=== PATIENT | male | born 1940 | race Caucasian/White ===

== ENCOUNTER 2016-12-25 07:07 | Outpatient (CLI) | payer OTHER ==
[2013-08-27 16:12] VITALS: BP 107/69
[2016-12-25 08:00] LABS: eGFR (African) 58; eGFR (Non-African) 48
== END 2016-12-25 07:10 ==
LOC: LAB 07:07
PROVIDERS: ATTEND Family Medicine
DX: I10 Essential (primary) hypertension (principal); R82.99 Other abnormal findings in urine
CPT/HCPCS: 36415; 80053; 80061; 84550

== ENCOUNTER 2017-06-09 14:02 | Inpatient (IN) | payer OTHER ==
[2017-06-09] MEDS ORDERED: IBUPROFEN 400 MG TABLET PO PRN (14:17)
[2017-06-09] MEDS: AZITHROMYCIN 250 MG TABLET PO SCH (14:58)
[2017-06-09] MEDS: ENOXAPARIN SODIUM 30 MG/0.3 ML DISP.SYRIN SQ SCH (14:58)
[2017-06-09 15:09] VITALS: BMI 21.5
[2017-06-09] MEDS: POTASSIUM CHLORIDE 20 MEQ TABLET.ER PO SCH (19:45)
[2017-06-09] MEDS: CEFDINIR 300 MG CAPSULE PO SCH (19:45)
[2017-06-09] MEDS ORDERED: METOPROLOL TARTRATE 50 MG TABLET PO SCH (21:00)
[2017-06-10 08:07] LABS: eGFR (African) > 60; eGFR (Non-African) 52
[2017-06-10] MEDS: AZITHROMYCIN 250 MG TABLET PO SCH (10:20)
[2017-06-10] MEDS: POTASSIUM CHLORIDE 20 MEQ TABLET.ER PO SCH ×2 (10:20→20:42)
[2017-06-10] MEDS: ALLOPURINOL 100 MG TABLET PO SCH (10:20)
[2017-06-10] MEDS: CEFDINIR 300 MG CAPSULE PO SCH ×2 (10:21→20:42)
[2017-06-10] MEDS: METOPROLOL TARTRATE 25 MG TABLET PO SCH ×2 (10:22→20:43)
[2017-06-10] MEDS: ENOXAPARIN SODIUM 30 MG/0.3 ML DISP.SYRIN SQ SCH (15:10)
[2017-06-11 06:19] LABS: BASOPHILS % 0.3 (0.0-1.5); EOSINOPHILS % 1.2 % (0.0-6.8); MEAN CORPUSCULAR HEMOGLOBIN 30.3 pg (28.0-34.0); MEAN CORPUSCULAR VOLUME 91.3 fl (80.0-100.0); MONOCYTES % 5.5 % (0.0-11.0); NEUTROPHILS # 8.7 # k/uL (1.4-7.7)
[2017-06-11] MEDS: AZITHROMYCIN 250 MG TABLET PO SCH (09:32)
[2017-06-11] MEDS: POTASSIUM CHLORIDE 20 MEQ TABLET.ER PO SCH ×2 (09:32→20:57)
[2017-06-11] MEDS: METOPROLOL TARTRATE 25 MG TABLET PO SCH ×2 (09:32→20:58)
[2017-06-11] MEDS: ALLOPURINOL 100 MG TABLET PO SCH (09:32)
[2017-06-11] MEDS: Non-Formulary 1 EACH PO SCH (09:33)
[2017-06-11] MEDS: CITALOPRAM HYDROBROMIDE 20 MG TABLET PO SCH ×2 (09:41→10:20)
[2017-06-11] MEDS: CEFDINIR 300 MG CAPSULE PO SCH ×2 (09:42→20:57)
[2017-06-11] MEDS: ENOXAPARIN SODIUM 30 MG/0.3 ML DISP.SYRIN SQ SCH (14:45)
[2017-06-12] MEDS: POTASSIUM CHLORIDE 20 MEQ TABLET.ER PO SCH ×2 (10:16→21:35)
[2017-06-12] MEDS: ALLOPURINOL 100 MG TABLET PO SCH (10:17)
[2017-06-12] MEDS: METOPROLOL TARTRATE 25 MG TABLET PO SCH ×2 (10:17→21:35)
[2017-06-12] MEDS: AZITHROMYCIN 250 MG TABLET PO SCH (10:17)
[2017-06-12] MEDS: CITALOPRAM HYDROBROMIDE 20 MG TABLET PO SCH (10:18)
[2017-06-12] MEDS: Non-Formulary 1 EACH PO SCH (10:29)
[2017-06-12] MEDS: CEFDINIR 300 MG CAPSULE PO SCH ×2 (10:29→21:36)
[2017-06-12] MEDS: ENOXAPARIN SODIUM 30 MG/0.3 ML DISP.SYRIN SQ SCH (16:47)
--- NOTE | 2017-06-13 08:08 | Inpatient Progress Note ---
Subjective - Required Recertification Statement I anticipate X number of days because-include discharge plan: 4 days - Review of Systems Events since last encounter: Patient stated he does seem to be doing better. Patient does feel like he is gaining strength and is able to ambulate better. There is some question by his family members whether patient is competent and should return home. Patient is oriented times three at this time. Patient does seem to have fairly good cognition. I will get a speech therapy cognition evaluation. Patient is aware of this.Patient stated he has been having some diarrhea over the last 24 hours per seem to be doing better at this time. Patient denies any nausea or vomiting. Patient denies any hematochezia or melena. Depression appeared to be stable. Cardiovascular: Denies: Chest Pain, Palpitations Objective - Exam Vitals and I&O: Vital Signs Temp 97.3 F L 06/12/17 21:00 Pulse 76 06/12/17 21:00 Resp 20 06/12/17 21:00 BP 145/79 06/12/17 21:00 Pulse Ox 94 06/12/17 21:00 Intake & Output 06/12/17 06/12/17 06/13/17 11:59 23:59 11:59 Intake Total 120 550 Output Total 2 2 Balance 118 548 Intake: Oral 120 550 Output: Stool 2 2 Other: Voiding Method Toilet Toilet # Voids 2 2 2 General: Alert, Oriented to Person, Oriented to Place, Oriented to Time, Cooperative, No acute distress Neck: Supple, No JVD Lungs: Normal air movement, Speaks full Sentences, Rhonchi (few scattered bilat) Cardiovascular: Regular rate, Normal S1, Normal S2, No murmurs Abdomen: Normal bowel sounds, Soft, No tenderness Psych/Mental Status: Mental status NL, Mood NL, Appropriate Affect, Intact Judgment - Results Results: Laboratory Results WBC 10.60 K/ul (4.00-12.00) 06/11/17 05:50 RBC 3.74 M/ul (3.90-5.20) L 06/11/17 05:50 Hgb 11.3 g/dL (12.0-18.0) L 06/11/17 05:50 Hct 34.1 % (37.0-53.0) L 06/11/17 05:50 MCV 91.3 fl (80.0-100.0) 06/11/17 05:50 MCH 30.3 pg (28.0-34.0) 06/11/17 05:50 MCHC 33.1 g/dL (30.0-36.0) 06/11/17 05:50 RDW 14.3 % (11.3-14.3) 06/11/17 05:50 Plt Count 278 K/mm3 (130-400) 06/11/17 05:50 Neut % (Auto) 82.2 % (39.0-79.0) H 06/11/17 05:50 Lymph % (Auto) 9.0 % (16.0-50.0) L 06/11/17 05:50 [place] % (Auto) 5.5 % (0.0-11.0) 06/11/17 05:50 Eos % (Auto) 1.2 % (0.0-6.8) 06/11/17 05:50 Baso % (Auto) 0.3 (0.0-1.5) 06/11/17 05:50 Neut # (Auto) 8.7 # k/uL (1.4-7.7) H 06/11/17 05:50 Lymph # (Auto) 1.0 # k/uL (0.6-4.0) 06/11/17 05:50 [place] # (Auto) 0.6 # k/uL (0.0-0.9) 06/11/17 05:50 Eos # (Auto) 0.1 # k/uL (0.0-0.6) 06/11/17 05:50 Baso # (Auto) 0.0 # k/uL (0.0-0.5) 06/11/17 05:50 Reactive Lymphs % 1.8 % (0.0-5.0) 06/11/17 05:50 Reactive Lymphs # 0.2 # k/uL (0.0-0.8) 06/11/17 05:50 Sodium 145 mmol/L (136-145) 06/10/17 06:50 Potassium 3.8 mmol/L (3.5-5.1) 06/10/17 06:50 Chloride 112 mmol/L (98-107) H 06/10/17 06:50 Carbon Dioxide 21 mmol/L (22-30) L 06/10/17 06:50 BUN 18 mg/dL (9-20) 06/10/17 06:50 Creatinine 1.40 mg/dL (0.66-1.25) H 06/10/17 06:50 Estimated Creat Clear 41 06/10/17 06:50 Est GFR ( Amer) > 60 (60-) 06/10/17 06:50 Est GFR (Non-Af Amer) 52 (60-) L 06/10/17 06:50 Glucose 94 mg/dL (74-106) 06/10/17 06:50 Calcium 9.2 mg/dL (8.4-10.2) 06/10/17 06:50 Assessment/Plan - Assessment/Plan (1) Gait disturbance Status: Acute Current Visit: Yes Assessment: Appeared to be improving with physical and occupational therapy. (2) Depression Status: Acute Current Visit: Yes Assessment: Stable at this time. Patient denies any suicidal ideation or thoughts (3) Acute renal failure Status: Acute Current Visit: No Qualifiers: Acute renal failure type: unspecified Qualified Code(s): N17.9 - Acute kidney failure, unspecified Assessment: improved , will recheck labs in AM (4) Dehydration Status: Acute Current Visit: No Assessment: reolved
[2017-06-13] MEDS: CITALOPRAM HYDROBROMIDE 20 MG TABLET PO SCH (09:36)
[2017-06-13] MEDS: POTASSIUM CHLORIDE 20 MEQ TABLET.ER PO SCH ×2 (09:37→19:53)
[2017-06-13] MEDS: MYRBETRIQ 25 MG PO SCH (09:38)
[2017-06-13] MEDS: AZITHROMYCIN 250 MG TABLET PO SCH (09:39)
[2017-06-13] MEDS: ALLOPURINOL 100 MG TABLET PO SCH (09:39)
[2017-06-13] MEDS: CEFDINIR 300 MG CAPSULE PO SCH ×2 (09:45→19:57)
[2017-06-13] MEDS: METOPROLOL TARTRATE 25 MG TABLET PO SCH ×2 (09:45→19:57)
[2017-06-13 10:29] LABS: eGFR (African) > 60; eGFR (Non-African) 52
[2017-06-13] MEDS: ENOXAPARIN SODIUM 30 MG/0.3 ML DISP.SYRIN SQ SCH (17:05)
[2017-06-14] MEDS: CEFDINIR 300 MG CAPSULE PO SCH ×2 (08:38→20:13)
[2017-06-14] MEDS: POTASSIUM CHLORIDE 20 MEQ TABLET.ER PO SCH ×2 (08:38→20:14)
[2017-06-14] MEDS: METOPROLOL TARTRATE 25 MG TABLET PO SCH ×2 (08:39→20:14)
[2017-06-14] MEDS: ALLOPURINOL 100 MG TABLET PO SCH (08:39)
[2017-06-14] MEDS: MYRBETRIQ 25 MG PO SCH (08:39)
[2017-06-14] MEDS: AZITHROMYCIN 250 MG TABLET PO SCH (08:39)
[2017-06-14] MEDS: ENOXAPARIN SODIUM 30 MG/0.3 ML DISP.SYRIN SQ SCH (14:42)
[2017-06-15] MEDS: AZITHROMYCIN 250 MG TABLET PO SCH (08:21)
[2017-06-15] MEDS: CEFDINIR 300 MG CAPSULE PO SCH ×2 (08:21→19:56)
[2017-06-15] MEDS: ALLOPURINOL 100 MG TABLET PO SCH (08:21)
[2017-06-15] MEDS: POTASSIUM CHLORIDE 20 MEQ TABLET.ER PO SCH ×2 (08:21→19:54)
[2017-06-15] MEDS: METOPROLOL TARTRATE 25 MG TABLET PO SCH ×2 (08:22→19:56)
[2017-06-15] MEDS: MIRABEGRON 25 MG TAB.ER.24H PO SCH (08:22)
[2017-06-15] MEDS: ENOXAPARIN SODIUM 30 MG/0.3 ML DISP.SYRIN SQ SCH (14:31)
[2017-06-16] MEDS: AZITHROMYCIN 250 MG TABLET PO SCH (09:13)
[2017-06-16] MEDS: POTASSIUM CHLORIDE 20 MEQ TABLET.ER PO SCH ×2 (09:14→20:01)
[2017-06-16] MEDS: ALLOPURINOL 100 MG TABLET PO SCH (09:15)
[2017-06-16] MEDS: MIRABEGRON 25 MG TAB.ER.24H PO SCH (09:15)
[2017-06-16] MEDS: METOPROLOL TARTRATE 25 MG TABLET PO SCH ×2 (09:15→20:01)
[2017-06-16] MEDS: CEFDINIR 300 MG CAPSULE PO SCH ×2 (09:22→20:01)
[2017-06-16] MEDS: ENOXAPARIN SODIUM 30 MG/0.3 ML DISP.SYRIN SQ SCH (14:08)
[2017-06-17] MEDS: AZITHROMYCIN 250 MG TABLET PO SCH (09:52)
[2017-06-17] MEDS: ALLOPURINOL 100 MG TABLET PO SCH (09:52)
[2017-06-17] MEDS: METOPROLOL TARTRATE 25 MG TABLET PO SCH ×2 (09:52→21:07)
[2017-06-17] MEDS: MIRABEGRON 25 MG TAB.ER.24H PO SCH (09:52)
[2017-06-17] MEDS: POTASSIUM CHLORIDE 20 MEQ TABLET.ER PO SCH ×3 (09:55→21:08)
[2017-06-17] MEDS: ENOXAPARIN SODIUM 30 MG/0.3 ML DISP.SYRIN SQ SCH (16:13)
[2017-06-18] MEDS: ALLOPURINOL 100 MG TABLET PO SCH (09:59)
[2017-06-18] MEDS: AZITHROMYCIN 250 MG TABLET PO SCH (09:59)
[2017-06-18] MEDS: METOPROLOL TARTRATE 25 MG TABLET PO SCH ×2 (09:59→21:41)
[2017-06-18] MEDS: MIRABEGRON 25 MG TAB.ER.24H PO SCH (10:00)
[2017-06-18] MEDS: POTASSIUM CHLORIDE 20 MEQ TABLET.ER PO SCH ×2 (10:12→21:42)
[2017-06-18] MEDS: SERTRALINE HCL 50 MG TABLET PO SCH (14:34)
[2017-06-18] MEDS: ENOXAPARIN SODIUM 30 MG/0.3 ML DISP.SYRIN SQ SCH (14:34)
--- NOTE | 2017-06-19 07:22 | Discharge Summary ---
Discharge Summary - Discharge Sumary History of Present Illness: 77-year-old white male who was recently admitted to acute care for dehydration and electrolyte imbalance. During his course of acute care patient did developed a cough x-ray did show a basiler infiltrate and was felt that the patient with developing pneumonia. Patient was started on antibiotic therapy for this. During his course of illness patient did became weak and was felt that he was an increase fall risk. It was felt that the patient would benefit from further physical and occupational therapy patient was subsequently admitted to his SNF for further rehab services. Condition at Discharge: Stable Home Medications: Ambulatory Orders Medication Instructions Recorded Mirabegron [Myrbetriq] 50 mg PO DAILY tab.er.24h 06/19/17 Potassium Chloride [Klor-Con M20] 40 meq PO BID #0 tablet.er 06/19/17 Sertraline HCl [Zoloft] 50 mg PO DAILY #30 tablet 06/19/17 Consultations this Visit: None Procedures this Visit: None Allergies/Adverse Reactions: Allergies Allergy/AdvReac Type Severity Reaction Status Date / Time No Known Drug Allergies Allergy Verified 06/05/17 11:57 Patient Problems: Current Active Problems Problem Status Onset Bladder spasms Acute Depression Acute Essential hypertension Acute Gait disturbance Acute Discharge Summary: Patient was started on physical and occupational therapy. Patient participated with therapy rehab services well. Patient stated amatory ability did improve during his SNF state. Patient did appear to be having some depression problems. At the talk to the patient he did agree that he needed some help with his depression. Patient was started on citalopram but was not able to tolerated. Patient was subsequently started on sertraline. Patient denies any suicidal ideation to thoughts. Patient appetite remained marginal during the SNF course. Patient was encouraged to make sure that his drinking a lot of fluids to keep from getting dehydrated again. Patient gout remain stable. - Final Diagnosis (1) Gait disturbance Problems: improved (2) Depression Problems: stable. (3) Acute renal failure Problems: Acute on chronic renal failure noted. At the time to discharge patient creatinine was a little bit higher than baseline. Acute renal failure was felt to be secondary to dehydration. (4) Dehydration Problems: resolved (7) Hypokalemia Problems: stable
--- NOTE | 2017-06-19 07:59 | Inpatient Progress Note ---
Subjective - Required Recertification Statement I anticipate X number of days because-include discharge plan: 4 days - Review of Systems Events since last encounter: Patient continues to do well with his ambulation and transferring. There has been some question about the patient mental competency. Patient is wanting to try to go home. Family members are what in the patient to go to a half-way for a short period of time. Patient does seem to be reasoning fairly well at this time. Objective - Exam Vitals and I&O: Vital Signs Temp 97.2 F L 06/18/17 20:32 Pulse 112 H 06/18/17 21:00 Resp 18 06/18/17 21:00 BP 157/83 06/18/17 20:32 Pulse Ox 97 06/18/17 20:32 Intake & Output 06/18/17 06/18/17 06/19/17 11:59 23:59 11:59 Intake Total 360 1060 120 Output Total 5 Balance 360 1055 120 Intake: Oral 360 1060 120 Output: Urine 3 Stool 2 Other: Voiding Method Toilet Toilet # Voids 2 2 General: Alert, Oriented to Person, Oriented to Place, Oriented to Time, Cooperative, No acute distress Neck: Supple Lungs: Clear to auscultation, Normal air movement, Speaks full Sentences. No: Wheezes, Rales, Rhonchi Cardiovascular: Regular rate, Normal S1, Normal S2 Abdomen: Normal bowel sounds, Soft Extremities: No edema Skin: Normal, [place], Warm, Dry Neurological: Normal speech, Cranial nerves 3-12 NL Psych/Mental Status: Mental status NL, Mood NL, Appropriate Affect, Intact Judgment - Results Results: Laboratory Results WBC 10.60 K/ul (4.00-12.00) 06/11/17 05:50 RBC 3.74 M/ul (3.90-5.20) L 06/11/17 05:50 Hgb 11.3 g/dL (12.0-18.0) L 06/11/17 05:50 Hct 34.1 % (37.0-53.0) L 06/11/17 05:50 MCV 91.3 fl (80.0-100.0) 06/11/17 05:50 MCH 30.3 pg (28.0-34.0) 06/11/17 05:50 MCHC 33.1 g/dL (30.0-36.0) 06/11/17 05:50 RDW 14.3 % (11.3-14.3) 06/11/17 05:50 Plt Count 278 K/mm3 (130-400) 06/11/17 05:50 Neut % (Auto) 82.2 % (39.0-79.0) H 06/11/17 05:50 Lymph % (Auto) 9.0 % (16.0-50.0) L 06/11/17 05:50 [place] % (Auto) 5.5 % (0.0-11.0) 06/11/17 05:50 Eos % (Auto) 1.2 % (0.0-6.8) 06/11/17 05:50 Baso % (Auto) 0.3 (0.0-1.5) 06/11/17 05:50 Neut # (Auto) 8.7 # k/uL (1.4-7.7) H 06/11/17 05:50 Lymph # (Auto) 1.0 # k/uL (0.6-4.0) 06/11/17 05:50 [place] # (Auto) 0.6 # k/uL (0.0-0.9) 06/11/17 05:50 Eos # (Auto) 0.1 # k/uL (0.0-0.6) 06/11/17 05:50 Baso # (Auto) 0.0 # k/uL (0.0-0.5) 06/11/17 05:50 Reactive Lymphs % 1.8 % (0.0-5.0) 06/11/17 05:50 Reactive Lymphs # 0.2 # k/uL (0.0-0.8) 06/11/17 05:50 Sodium 140 mmol/L (136-145) 06/17/17 11:30 Potassium 4.9 mmol/L (3.5-5.1) 06/17/17 11:30 Chloride 105 mmol/L (98-107) 06/17/17 11:30 Carbon Dioxide 24 mmol/L (22-30) 06/17/17 11:30 BUN 21 mg/dL (9-20) H 06/17/17 11:30 Creatinine 1.80 mg/dL (0.66-1.25) H 06/17/17 11:30 Estimated Creat Clear 32 06/17/17 11:30 Est GFR ( Amer) 47 (60-) L 06/17/17 11:30 Est GFR (Non-Af Amer) 39 (60-) L 06/17/17 11:30 Glucose 88 mg/dL (74-106) 06/17/17 11:30 Calcium 9.9 mg/dL (8.4-10.2) 06/17/17 11:30 Assessment/Plan - Assessment/Plan (1) Gait disturbance Status: Acute Current Visit: Yes Assessment: stable (2) Depression Status: Acute Current Visit: Yes Qualifiers: Depression Type: major depressive disorder Assessment: A talk to patient about trying a another antidepressant medications other than the citalopram. Patient believes that he would be agreeable to that. (3) Acute renal failure Status: Acute Current Visit: No Qualifiers: Acute renal failure type: unspecified Qualified Code(s): N17.9 - Acute kidney failure, unspecified Assessment: resolved (4) Dehydration Status: Acute Current Visit: No (5) Essential hypertension Status: Acute Current Visit: Yes (6) Bladder spasms Status: Acute Current Visit: Yes (7) Hypokalemia Status: Acute Current Visit: No
[2017-06-19] MEDS: POTASSIUM CHLORIDE 20 MEQ TABLET.ER PO SCH (08:48)
[2017-06-19] MEDS: AZITHROMYCIN 250 MG TABLET PO SCH (08:48)
[2017-06-19] MEDS: METOPROLOL TARTRATE 25 MG TABLET PO SCH (08:48)
[2017-06-19] MEDS: SERTRALINE HCL 50 MG TABLET PO SCH (08:49)
[2017-06-19] MEDS: ALLOPURINOL 100 MG TABLET PO SCH (08:49)
[2017-06-19] MEDS: MIRABEGRON 25 MG TAB.ER.24H PO SCH (08:54)
[2017-06-19] MEDS ORDERED: DOCUSATE SODIUM 100 MG CAPSULE PO SCH (09:00)
[2017-06-19 10:26] VITALS: BP 112/60
--- NOTE | 2017-07-17 07:49 | Inpatient Progress Note ---
Objective - Exam Vitals and I&O: Vital Signs Temp 97.7 F 06/19/17 09:00 Pulse 110 H 06/19/17 09:00 Resp 18 06/19/17 09:00 BP 112/60 06/19/17 09:00 Pulse Ox 92 06/19/17 09:00 - Results Results: Laboratory Results WBC 10.60 K/ul (4.00-12.00) 06/11/17 05:50 RBC 3.74 M/ul (3.90-5.20) L 06/11/17 05:50 Hgb 11.3 g/dL (12.0-18.0) L 06/11/17 05:50 Hct 34.1 % (37.0-53.0) L 06/11/17 05:50 MCV 91.3 fl (80.0-100.0) 06/11/17 05:50 MCH 30.3 pg (28.0-34.0) 06/11/17 05:50 MCHC 33.1 g/dL (30.0-36.0) 06/11/17 05:50 RDW 14.3 % (11.3-14.3) 06/11/17 05:50 Plt Count 278 K/mm3 (130-400) 06/11/17 05:50 Neut % (Auto) 82.2 % (39.0-79.0) H 06/11/17 05:50 Lymph % (Auto) 9.0 % (16.0-50.0) L 06/11/17 05:50 [place] % (Auto) 5.5 % (0.0-11.0) 06/11/17 05:50 Eos % (Auto) 1.2 % (0.0-6.8) 06/11/17 05:50 Baso % (Auto) 0.3 (0.0-1.5) 06/11/17 05:50 Neut # (Auto) 8.7 # k/uL (1.4-7.7) H 06/11/17 05:50 Lymph # (Auto) 1.0 # k/uL (0.6-4.0) 06/11/17 05:50 [place] # (Auto) 0.6 # k/uL (0.0-0.9) 06/11/17 05:50 Eos # (Auto) 0.1 # k/uL (0.0-0.6) 06/11/17 05:50 Baso # (Auto) 0.0 # k/uL (0.0-0.5) 06/11/17 05:50 Reactive Lymphs % 1.8 % (0.0-5.0) 06/11/17 05:50 Reactive Lymphs # 0.2 # k/uL (0.0-0.8) 06/11/17 05:50 Sodium 140 mmol/L (136-145) 06/17/17 11:30 Potassium 4.9 mmol/L (3.5-5.1) 06/17/17 11:30 Chloride 105 mmol/L (98-107) 06/17/17 11:30 Carbon Dioxide 24 mmol/L (22-30) 06/17/17 11:30 BUN 21 mg/dL (9-20) H 06/17/17 11:30 Creatinine 1.80 mg/dL (0.66-1.25) H 06/17/17 11:30 Estimated Creat Clear 32 06/17/17 11:30 Est GFR ( Amer) 47 (60-) L 06/17/17 11:30 Est GFR (Non-Af Amer) 39 (60-) L 06/17/17 11:30 Glucose 88 mg/dL (74-106) 06/17/17 11:30 Calcium 9.9 mg/dL (8.4-10.2) 06/17/17 11:30 Assessment/Plan - Assessment/Plan (1) Gait disturbance Status: Acute (2) Depression Status: Acute Qualifiers: Depression Type: major depressive disorder (3) Acute renal failure Status: Acute Qualifiers: Acute renal failure type: unspecified Qualified Code(s): N17.9 - Acute kidney failure, unspecified (4) Dehydration Status: Acute (5) Essential hypertension Status: Acute (6) Bladder spasms Status: Acute (7) Hypokalemia Status: Acute
== END 2017-06-19 11:05 | disposition home or self-care (01) | DRG 91 ==
LOC: SOUTH 14:02
PROVIDERS: ADMIT Family Medicine; ATTEND Family Medicine
DX: R26.89 Other abnormalities of gait and mobility (principal); J18.9 Pneumonia, unspecified organism; F32.9 Major depressive disorder, single episode, unspecified; N17.9 Acute kidney failure, unspecified; E86.0 Dehydration
CPT/HCPCS: 36415; 80048; 85025; 97535; J1650; A9270

== ENCOUNTER 2017-06-20 09:07 | Emergency (ER) | payer OTHER ==
--- NOTE | 2017-06-20 09:22 | ED Physician Documentation ---
General Adult - HISTORIAN Historian: patient - HPI Stated Complaint: dizziness and syncope Chief Complaint: General Adult Onset: other (at 3 am ) Timing: still present Severity: moderate Further Comments: yes (He reports he has recently been inpatient and then was on skilled unit and discharge yesterday and he was trying to see if he could make it at home and he states he is too weak. He did fall in the bathroom at 3 am and he did hit his head. Denies any LOC. He states he got up and went to the bathroom and back to bed. He states that he is feeling no pain. He does feel weak and dizzy. He wants to get placed in [facility]) - ROS CONST: no problems, recent illness EYES/ENT: none CVS/RESP: none GI/: none - PAST HX Past History: other Surgeries/Procedures: other Immunizations: UTD Allergies/Adverse Reactions: Allergies Allergy/AdvReac Type Severity Reaction Status Date / Time No Known Drug Allergies Allergy Verified 06/20/17 12:45 Home Medications: Ambulatory Orders Medication Instructions Recorded Potassium Chloride [Klor-Con M20] 20 meq PO BID #60 tab.er.prt 06/19/17 Sertraline HCl [Zoloft] 50 mg PO DAILY #30 tablet 06/19/17 Mirabegron [Myrbetriq] 50 mg PO DAILY 06/20/17 - SOCIAL HX Smoking History: non-smoker Alcohol Use: none Drug Use: none - FAMILY HX Family History: No - VITAL SIGNS Vital Signs: Vital Signs Temp Pulse Resp BP Pulse Ox 112/60 06/19/17 09:00 - REVIEWED ASSESSMENTS Nursing Assessment Reviewed: Yes Vitals Reviewed: Yes Progress - Progress Progress: 1000: Still awaiting Janitorial Services Supervisor for eval on NH placement. No complaints. 1250: Still awaiting for eval. DG ED Results Lab/Radiology - Radiology Radiology Impressions: Examination: CT head without contrast History: FELL; DIZZINESS WHEN STANDING SINCE 0200 ON 06/20/17 (Hx) / FALL, HIT HEAD (DICOM Hx) Comparison exam: None available Technique: Noncontrast head CT protocol. Findings: Ventricles and sulci are consistent for patient age. Cerebrocerebellar parenchyma demonstrates periventricular low attenuation consistent with small vessel disease. Old right lacunar infarct. Right cerebellar low attenuation - also likely old. No evidence for parenchymal hemorrhage. No evidence for mass or mass effect. No midline shift. No extra axial fluid collections. Partial visualization of the paranasal sinuses, mastoid air cells, orbits, skull and scalp without gross irregularity. Impression: Age related changes. 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 No acute parenchymal process. No hemorrhage. Correlation with older exams recommended, if become available, to confirm stability. Electronically signed on Jun 20, 2017 10:19:54 AM ANIMAL BEHAVIORIST by: Jayson Heredia General Adult Physical Exam - PHYSICAL EXAM GENERAL APPEARANCE: no distress EENT: eye inspection normal, MIGUEL NECK: normal inspection RESPIRATORY: no resp distress, chest non-tender, breath sounds normal CVS: reg rate & rhythm, heart sounds normal, equal pulses, no murmur ABDOMEN: soft BACK: normal inspection, no CVA tenderness SKIN: warm/dry, normal color EXTREMITIES: non-tender, normal range of motion, no evidence of injury, no edema NEURO: oriented X3, CN's nml as tested, motor nml, sensation nml, mood/affect nml Discharge Clincal Impression: Weakness Referrals: Colton Cohn MD [Primary Care Provider] - 2 Days Condition: Stable Disposition: 04 [facility] Decision to Admit: NO Date of Decison to Admit: 06/20/17 Decision Time: 15:26
[2017-06-20] MEDS: 0.9 % SODIUM CHLORIDE 1,000 ML IV ONE (09:40)
[2017-06-20 10:05] LABS: BASOPHILS % 0.4 (0.0-1.5); EOSINOPHILS % 0.5 % (0.0-6.8); MEAN CORPUSCULAR HEMOGLOBIN 30.2 pg (28.0-34.0); MEAN CORPUSCULAR VOLUME 96.1 fl (80.0-100.0); MONOCYTES % 3.5 % (0.0-11.0); NEUTROPHILS # 7.2 # k/uL (1.4-7.7)
--- NOTE | 2017-06-20 10:25 | Diagnostic Imaging Report ---
FRAN BANGURA [facility] [address] [facility] [address] [place], [place]. [address] Report Submission Date: Jun 20, 2017 10:19:54 AM CHARLEE Patient Study Name: RUI LOWRY Date: Jun 20, 2017 9:54:30 AM MILITARY SOURCE OPERATIONS OFFICER Modality Type: CT\SR Gender: M Description: CT BRAIN W/O CONTRAST : 38 Institution: [facility] Physician: FRAN BANGURA Examination: CT head without contrast History: FELL; DIZZINESS WHEN STANDING SINCE 0200 ON 06/20/17 (Hx) / FALL, HIT HEAD (DICOM Hx) Comparison exam: None available Technique: Noncontrast head CT protocol. Findings: Ventricles and sulci are consistent for patient age. Cerebrocerebellar parenchyma demonstrates periventricular low attenuation consistent with small vessel disease. Old right lacunar infarct. Right cerebellar low attenuation - also likely old. No evidence for parenchymal hemorrhage. No evidence for mass or mass effect. No midline shift. No extra axial fluid collections. Partial visualization of the paranasal sinuses, mastoid air cells, orbits, skull and scalp without gross irregularity. Impression: Age related changes. 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 No acute parenchymal process. No hemorrhage. Correlation with older exams recommended, if become available, to confirm stability. Electronically signed on Jun 20, 2017 10:19:54 AM MILITARY SOURCE OPERATIONS OFFICER by: Jayson GAGE
[2017-06-20 15:49] VITALS: BP 116/70
== END 2017-06-20 15:05 ==
LOC: ED 09:07
DX: R53.1 Weakness (principal); W19.XXXA Unspecified fall, initial encounter
CPT/HCPCS: 70450; 80053; 85025; 99284; J7030; S1016

== ENCOUNTER 2017-07-01 10:12 | Outpatient (CLI) | payer OTHER ==
[2017-07-01 10:54] LABS: eGFR (African) 50; eGFR (Non-African) 42
== END 2017-07-01 10:13 ==
LOC: LAB 10:12
PROVIDERS: ATTEND Family Medicine
DX: E87.6 Hypokalemia (principal); I10 Essential (primary) hypertension
CPT/HCPCS: 36415; 80053

== ENCOUNTER 2017-08-15 09:26 | Outpatient (CLI) | payer OTHER ==
[2017-08-15 10:24] LABS: eGFR (African) > 60; eGFR (Non-African) 57
== END 2017-08-15 09:27 ==
LOC: LAB 09:26
PROVIDERS: ATTEND Family Medicine
DX: E87.6 Hypokalemia (principal)
CPT/HCPCS: 36415; 80048